=== PATIENT | male | born 1960 | race American Indian/Alaskan Native ===

== ENCOUNTER 2019-03-07 06:51 | Outpatient (CLI) | payer OTHER | END 2019-03-07 06:52 | disposition home or self-care (01) | LOC: PF 06:51 | PROVIDERS: ATTEND Internal Medicine | DX: Z02.71 Encounter for disability determination (principal); D86.9 Sarcoidosis, unspecified; R03.0 Elevated blood-pressure reading, without diagnosis of hypertension | CPT/HCPCS: 94010 ==